=== PATIENT | male | born 1965 | race Caucasian/White ===

== ENCOUNTER 2016-12-15 07:06 | Outpatient (CLI) | payer OTHER ==
[2016-12-15 08:01] LABS: eGFR (African) > 60; eGFR (Non-African) > 60
== END 2016-12-15 07:07 ==
LOC: LAB 07:06
PROVIDERS: ATTEND Family Medicine
DX: Z00.00 Encounter for general adult medical examination without abnormal findings (principal); Z12.5 Encounter for screening for malignant neoplasm of prostate
CPT/HCPCS: 36415; 80053; 80061; 84153

== ENCOUNTER 2018-02-06 07:45 | Outpatient (CLI) | payer OTHER ==
[2018-02-06 08:51] LABS: eGFR (African) > 60; eGFR (Non-African) > 60
== END 2018-02-06 07:46 ==
LOC: LAB 07:45
PROVIDERS: ATTEND Family Medicine
DX: Z00.00 Encounter for general adult medical examination without abnormal findings (principal)
CPT/HCPCS: 36415; 80053; 80061

== ENCOUNTER 2018-08-02 14:53 | Outpatient (CLI) | payer OTHER | END 2018-08-02 14:55 | LOC: LAB 14:53 | PROVIDERS: ATTEND Family Medicine | DX: M10.272 Drug-induced gout, left ankle and foot (principal) | CPT/HCPCS: 36415; 84550 ==